=== PATIENT | female | born 1965 | race Caucasian/White ===

== ENCOUNTER 2017-06-02 07:14 | Outpatient (CLI) | payer BC | END 2017-06-02 07:15 | disposition home or self-care (01) | LOC: BICMAMMO 07:14 | PROVIDERS: ATTEND Obstetrics & Gynecology | DX: Z12.31 Encounter for screening mammogram for malignant neoplasm of breast (principal); Z80.3 Family history of malignant neoplasm of breast | CPT/HCPCS: 77063; 77067; G0202 ==

== ENCOUNTER 2023-06-30 14:53 | Outpatient (CLI) | payer BC | END 2023-06-30 14:54 | disposition home or self-care (01) | LOC: BICMAMMO 14:53 | PROVIDERS: ATTEND Student in an Organized Health Care Education/Training Program | DX: N64.89 Other specified disorders of breast (principal); R92.1 Mammographic calcification found on diagnostic imaging of breast | CPT/HCPCS: 77066; G0279 ==

== ENCOUNTER → 2023-07-06 | Day surgery (SDC) | payer BC | LOC: MAMMO 06:53 | PROVIDERS: ATTEND Student in an Organized Health Care Education/Training Program | PROC: 0H9T3ZX Drainage of Right Breast, Percutaneous Approach, Diagnostic (ICD-10-PCS; principal; 2023-07-06) | DX: D05.11 Intraductal carcinoma in situ of right breast (principal) | CPT/HCPCS: 19283; 76098; 88305; 88341; 88342 ==

== ENCOUNTER 2024-03-10 08:30 | Outpatient (CLI) | payer BC | END 2024-03-10 08:31 | disposition home or self-care (01) | LOC: ULT 08:30 | PROVIDERS: ATTEND Nurse Practitioner Family | DX: R74.8 Abnormal levels of other serum enzymes (principal) | CPT/HCPCS: 76700 ==